=== PATIENT | female | born 1980 | race Hispanic/Latino ===

== ENCOUNTER 2018-09-10 14:07 | Outpatient (CLI) | payer BC ==
--- NOTE | 2018-09-10 15:43 | RAD ---
TWO VIEWS CHEST: 09/10/18 HISTORY: Cough, congestion. PA and lateral views of the chest is obtained. The lungs are well aerated. No evidence of active intr athoracic disease seen. No evidence of effusions, pneumonia or pneumothorax seen. IMPRESSION: Unremarkable two views chest. POS: [facility]
== END 2018-09-10 14:08 | disposition home or self-care (01) ==
LOC: SCSRAD 14:07
PROVIDERS: ATTEND Family Medicine
DX: R05 Cough (principal)
CPT/HCPCS: 71046

== ENCOUNTER 2019-02-04 09:03 | Outpatient (CLI) | payer BC ==
--- NOTE | 2019-02-04 09:32 | ULT ---
Exam: Bilateral renal ultrasound HISTORY: Recurrent urinary tract infection. COMPARISON: None FINDINGS: Right kidney: Normal cortical echotexture. No hydronephrosis. Right kidney measurements: 4.3 x 4.5 x 9.6 cm. Left kidney: Normal cortical echotexture. No hydronephrosis Left kidney measurements 11.0 x 5.8 x 5.3 cm. Urinary bladder: Normal mucosa. Prevoid volume 177 mL. IMPRESSION: No hydronephrosis.
== END 2019-02-04 09:04 | disposition home or self-care (01) ==
LOC: SCSULT 09:03
PROVIDERS: ATTEND Urology
DX: N39.0 Urinary tract infection, site not specified (principal)
CPT/HCPCS: 76770